=== PATIENT | female | born 1940 | race Caucasian/White ===

== ENCOUNTER 2024-12-22 13:15 | Inpatient (IN) | payer MEDICARE, OTHER ==
[~2024-12-22] VITALS: Ht 162.6 cm; Wt 72.2 kg
[2024-12-22 13:59] LABS: BASOPHILS % (AUTO) 0.2 % (0.0-2.0); EOSINOPHILS % (AUTO) 0.3 % (0.0-7.0); HEMATOCRIT 35.2 % (31.2-41.9); HEMOGLOBIN 11.6 g/dL (10.9-14.3); LYMPHOCYTES # (AUTO) 1.3 K/uL (0.8-4.8); LYMPHOCYTES % (AUTO) 15.6 % (20.5-51.5); MEAN CORPUSCULAR HEMOGLOBIN 25.3 uug (24.7-32.8); MEAN CORPUSCULAR HGB CONC 33 g/dL (32.3-35.6); MEAN CORPUSCULAR VOLUME 76.6 fL (75.5-95.3); MONOCYTES # (AUTO) 0.7 K/uL (0.1-1.30); NEUTROPHILS # (AUTO) 6.2 K/uL (1.8-8.9); NEUTROPHILS % (AUTO) 74.9 % (38.5-71.5); PLATELET COUNT (AUTO) 230 K/uL (179-408); RED BLOOD CELL COUNT(AUTO) 4.59 MIL/uL (3.63-4.92); RED CELL DISTRIBUTION WIDTH 17.2 % (12.3-17.7); WHITE BLOOD COUNT (AUTO) 8.3 K/uL (3.8-11.8)
[2024-12-22] MEDS: IV NORMAL SALINE 1000 ML BAG IV ONE (14:04)
[2024-12-22 14:06] LABS: DIFFERENTIAL COMMENT 1
[2024-12-22 14:16] LABS: CALCIUM 8.8 mg/dL (8.5-10.1); CARBON DIOXIDE 36 mmol/L (21-32); CHLORIDE 96 mmol/L (98-107); CREATININE 1.1 mg/dL (0.6-1.3); GLUCOSE 112 mg/dL (74-106); POTASSIUM 3.4 mmol/L (3.5-5.1); SODIUM SERUM 136 mmol/L (136-145); UREA NITROGEN, BLOOD 19 mg/dL (7-18)
[2024-12-22] MEDS ORDERED: CALC500T13 PO (14:22)
[2024-12-22] MEDS ORDERED: SPIR100T5 PO (14:22)
[2024-12-22] MEDS ORDERED: CLON1TAB12 PO (14:22)
[2024-12-22] MEDS ORDERED: LOPE2CAP40 PO (14:22)
[2024-12-22] MEDS ORDERED: OXYC10TA49 PO ×2 (14:22)
[2024-12-22] MEDS ORDERED: BISM262O28 PO (14:22)
[2024-12-22] MEDS ORDERED: GUAI-1197 PO (14:22)
[2024-12-22] MEDS ORDERED: FURO80TA87 PO (14:22)
[2024-12-22] MEDS ORDERED: TRAZ-257 PO (14:22)
[2024-12-22] MEDS ORDERED: DIPH25CA83 PO (14:22)
[2024-12-22] MEDS ORDERED: LORA0.5T48 PO ×2 (14:22)
[2024-12-22] MEDS ORDERED: SERT100T PO (14:22)
[2024-12-22] MEDS ORDERED: GABA300C PO (14:22)
[2024-12-22] MEDS ORDERED: PANT40TA49 PO (14:22)
[2024-12-22] MEDS ORDERED: ONDA4TAB5 PO (14:22)
[2024-12-22] MEDS ORDERED: SENN-261 PO (14:22)
[2024-12-22 14:25] LABS: ALANINE AMINOTRANSFERASE 26 U/L (14-59); ALBUMIN 2.8 g/dL (3.4-5.0); ALKALINE PHOSPHATASE 124 U/L (50-136); ASPARTATE AMINOTRANSFERASE 13 U/L (15-37); BILIRUBIN,DIRECT 0.3 mg/dL (0.0-0.2); BILIRUBIN,TOTAL 0.8 mg/dL (0.2-1.0); TOTAL PROTEIN, SERUM 6.9 g/dL (6.4-8.2)
[2024-12-22 14:35] LABS: *BILIRUBIN,URIN NEGATIVE (NEGATIVE); *BLOOD, URINE NEGATIVE (NEGATIVE); *CLARITY,URINE CLEAR (CLEAR); *COLOR,URINE YELLOW (YELLOW); *KETONES,URINE NEGATIVE (NEGATIVE); *PROTEIN,URINE NEGATIVE (NEGATIVE); LEUKOCYTE ESTERASE ,URINE 1+ (NEGATIVE); NITRITE, URINE NEGATIVE (NEGATIVE); PH,URINE 7.5 (5.0-8.0); UGLUCOSE NEGATIVE (NEGATIVE)
[2024-12-22 14:38] LABS: LIPASE 20 U/L (16-77)
[2024-12-22 15:02] LABS: RBC,URINE 0-3 /HPF (0-3)
[2024-12-22 15:03] LABS: BACTERIA,URINE FEW /HPF (NONE SEEN); SQUAMOUS EPITHELIAL CELL,UR FEW /HPF (NONE SEEN)
[2024-12-22] MEDS ORDERED: ONDANSETRON 4 MG/2 ML VIAL ONE (15:42)
[2024-12-22] MEDS ORDERED: MORPHINE SULFATE 4 MG/1 ML DISP.SYRIN ONE (15:43)
[2024-12-22] MEDS: ONDANSETRON 4 MG/2 ML VIAL IV ONE (15:45)
[2024-12-22] MEDS: MORPHINE SULFATE 4 MG/1 ML DISP.SYRIN IV ONE (15:45)
[2024-12-22] MEDS ORDERED: MAG HYDROX/AL HYDROX/SIMETH 30 ML LIQUID UDC ONE (17:19)
[2024-12-22] MEDS: MAG HYDROX/AL HYDROX/SIMETH 30 ML LIQUID UDC PO ONE (17:24)
[2024-12-22] MEDS ORDERED: ACETAMINOPHEN 325 MG TABLET PO PRN (21:30)
[2024-12-22] MEDS ORDERED: REMEDY ESSENTIAL ZINC PASTE 113 GM TP PRN (21:30)
[2024-12-22] MEDS ORDERED: ONDANSETRON 4 MG/2 ML VIAL IV PRN (21:30)
[2024-12-22] MEDS: ENOXAPARIN SODIUM 40 MG/0.4 ML DISP.SYRIN SQ SCH (22:17)
[2024-12-22] MEDS ORDERED: CEFTRIAXONE /D5W 50ML IVPB **ER PYXIS IV ONE (22:58)
[2024-12-22] MEDS: LORAZEPAM 0.5 MG TABLET PO PRN (23:10)
[2024-12-22] MEDS: OXYCODONE HCL 5 MG TABLET PO PRN (23:11)
[2024-12-22] MEDS: CEFTRIAXONE 1 G in IV DEXTROSE 5% 50 ML IV SCH (23:11)
[2024-12-22 23:25] VITALS: O2SAT 96
[2024-12-23 07:04] VITALS: BP 127/56; TEMP 97.9; O2SAT 92
[2024-12-23] MEDS ORDERED: SPIRONOLACTONE 100 MG TABLET PO SCH ×2 (09:00→14:00)
[2024-12-23] MEDS: GABAPENTIN 300 MG CAPSULE PO SCH (09:15)
[2024-12-23] MEDS: FUROSEMIDE 40 MG TABLET PO SCH (09:15)
[2024-12-23 10:57] VITALS: BP 112/45; TEMP 98.4; O2SAT 94
[2024-12-23] MEDS: SPIRONOLACTONE 50 MG TABLET PO SCH (12:45)
[2024-12-23] MEDS ORDERED: DICYCLOMINE HCL LIQ 10 MG/5 ML UDC PO ONE (13:45)
[2024-12-23] MEDS ORDERED: DICY20TA11 PO (13:53)
[2024-12-23] MEDS: DICYCLOMINE HCL 20 MG TABLET PO ONE (14:05)
[2024-12-23 16:32] VITALS: BP 118/42; TEMP 98.2; O2SAT 94
[2024-12-23] MEDS ORDERED: CLONAZEPAM 1 MG TABLET PO SCH (21:00)
[2024-12-23] MEDS ORDERED: TRAZODONE 100 MG TABLET PO SCH (21:00)
[2024-12-23] MEDS ORDERED: SERTRALINE HCL 100 MG TABLET PO SCH (21:00)
== END 2024-12-23 19:00 | disposition hospice, home (50) | DRG 920 ==
LOC: ER 13:15 → MEDSURG3 20:50
PROVIDERS: ADMIT Nurse Practitioner Acute Care; ATTEND Nurse Practitioner Acute Care
DX: T85.628A Displacement of other specified internal prosthetic devices, implants and grafts, initial encounter (principal); I50.32 Chronic diastolic (congestive) heart failure; N39.0 Urinary tract infection, site not specified; T81.31XA Disruption of external operation (surgical) wound, not elsewhere classified, initial encounter; K43.2 Incisional hernia without obstruction or gangrene; K21.9 Gastro-esophageal reflux disease without esophagitis; F32.A Depression, unspecified; Y73.3 Surgical instruments, materials and gastroenterology and urology devices (including sutures) associated with adverse incidents; Y92.099 Unspecified place in other non-institutional residence as the place of occurrence of the external cause
CPT/HCPCS: 36415; 71045; 83690; 84484; 85025; 85730; 87086; A4606; A4663; G0378; J0696; J1650; J2270; J2405; J7040